=== PATIENT | female | born 1995 | race Two or more races ===

== ENCOUNTER 2018-08-30 16:33 | Inpatient (IN) | payer MEDICAID ==
[2018-08-30] MEDS ORDERED: Sodium Chloride 0.9% 10 ML Syringe FLUSH PRN (17:10)
[2018-08-30] MEDS ORDERED: Tranexamic Acid 1,000 MG in Sodium Chloride 0.9% 100 ML IV PRN (17:10)
[2018-08-30] MEDS ORDERED: Water For Irrigation,Sterile 1,000 ML Container IRR PRN (17:10)
[2018-08-30] MEDS ORDERED: Methylergonovine 0.2 MG/1 ML Amp IM PRN (17:10)
[2018-08-30] MEDS ORDERED: Butorphanol 1 MG/ML SDV IVPUSH PRN (17:10)
[2018-08-30] MEDS ORDERED: Sodium Chloride 0.9% 2.5 ML Syringe FLUSH PRN (17:10)
[2018-08-30] MEDS ORDERED: Misoprostol 200 MCG Tab PO PRN (17:10)
[2018-08-30] MEDS ORDERED: Lidocaine 1% 50 ML MDV INJECT PRN (17:10)
[2018-08-30] MEDS ORDERED: Nalbuphine 10 MG/1 ML Vial IVPUSH PRN (17:10)
[2018-08-30] MEDS ORDERED: Carboprost Tromethamine 250 MCG/1 ML Amp IM PRN (17:10)
[2018-08-30] MEDS ORDERED: Lactated Ringers 1,000 ML IV SCH (17:15)
[2018-08-30] MEDS ORDERED: Oxytocin/0.9 % Sodium Chloride 30 UNIT/500 ML BAG IV SCH (17:15)
[2018-08-30] MEDS ORDERED: fentaNYL 100 MCG/2 ML SDV ONE (18:22)
[2018-08-30] MEDS ORDERED: Ropivacaine HCl/PF 100 ML ONE (18:23)
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
[2018-08-30] MEDS ORDERED: Simethicone 80 MG Tab.Chew PO PRN (21:54)
[2018-08-30] MEDS ORDERED: Docusate Sodium 100 MG Cap PO PRN (21:54)
[2018-08-30] MEDS ORDERED: Lanolin 100% Cream 7 GM Tube TOP PRN (21:54)
[2018-08-30] MEDS ORDERED: Acetaminophen 500 MG Tab PO PRN ×2 (21:54)
[2018-08-30] MEDS ORDERED: Benzocaine/Menthol 20%-0.5% Spray 78 GM Cannister TOP PRN (21:54)
[2018-08-30] MEDS ORDERED: oxyCODONE 5 MG Tab PO PRN (21:54)
[2018-08-30] MEDS ORDERED: Bisacodyl 10 MG Supp RECTAL PRN (21:54)
[2018-08-30] MEDS ORDERED: Ibuprofen 400 MG Tab PO PRN (21:54)
[2018-08-30] MEDS ORDERED: Witch Hazel Medicated Pads 40/Jar TOP PRN (21:54)
--- NOTE | 2018-08-30 21:58 | PCM.DEL ---
L & D Note - General Info Date of Service: 08/30/18 - Delivery Note Labor: Spontaneous Delivery Outcome: Livebirth Delivery Method: Spontaneous Vaginal Delivery-Single Delivery Mode: Spontaneous Presentation: Vertex Nuchal Cord: None Prep: Other Anesthesia Type: Epidural Amniotic Fluid Description: Clear Episiotomy Type: None Laceration: 1st Degree Suture type: Vicryl Suture size: 3-0 Placenta: Intact, Spontaneous Cord: 3 Vessels Estimated Blood Loss: 200 Score 1 min: 7 Score 5 min: 8 - General Info Date of Service: 08/30/18 - Patient Data Weight - Most Recent: 140 lb Lab Results Last 24 Hours: Laboratory Results - last 24 hr 08/30/18 08/30/18 Range/Units 17:27 18:17 WBC 13.89 H (4.0-11.0) K/uL RBC 4.40 (4.30-5.90) M/uL Hgb 11.0 L (12.0-16.0) g/dL Hct 35.3 L (36.0-46.0) % MCV 80.2 (80.0-98.0) fL MCH 25.0 L (27.0-32.0) pg MCHC 31.2 (31.0-37.0) g/dL RDW Std Deviation 61.2 (28.0-62.0) fl RDW Coeff of Marcos 21 H (11.0-15.0) % Plt Count 445 H (150-400) K/uL MPV 9.80 (7.40-12.00) fL Nucleated RBC % 0.0 /100WBC Nucleated RBCs # 0 K/uL Blood Type O POSITIVE Antibody Screen NEGATIVE Med Orders - Current: Current Medications Butorphanol Tartrate (Stadol) 1 mg IVPUSH Q1H PRN PRN Reason: Pain Carboprost Tromethamine (Hemabate Ds) 250 mcg IM ASDIRECTED PRN PRN Reason: Post Hemorrhage Lactated Ringer's (Ringers, Lactated) 1,000 mls @ 150 mls/hr IV ASDIRECTED REYES Last Admin: 08/30/18 18:10 Dose: 150 mls/hr Oxytocin/Sodium Chloride (Oxytocin 30 Unit/500 Ml-Ns) 30 unit in 500 mls @ 999 mls/hr IV TITRATE REYES Tranexamic Acid 1,000 mg/ (Sodium Chloride) 110 mls @ 660 mls/hr IV ONETIME PRN PRN Reason: Bleeding Lidocaine HCl (Xylocaine 1%) 50 ml INJECT ONETIME PRN PRN Reason: Laceration repair Methylergonovine Maleate (Methergine) 0.2 mg IM ASDIRECTED PRN PRN Reason: Post Hemorrhage Misoprostol (Cytotec) 200 mcg PO ONETIME PRN PRN Reason: Post Hemorrhage Nalbuphine HCl (Nubain) 10 mg IVPUSH Q1H PRN PRN Reason: Pain (severe 7-10) Sodium Chloride (Saline Flush) 10 ml FLUSH ASDIRECTED PRN PRN Reason: Keep Vein Open Sodium Chloride (Saline Flush) 2.5 ml FLUSH ASDIRECTED PRN PRN Reason: Keep Vein Open Sterile Water (Sterile Water For Irrigation) 1,000 ml IRR ASDIRECTED PRN PRN Reason: delivery Discontinued Medications Fentanyl (Sublimaze) Confirm Administered Dose 100 mcg .ROUTE .STK-MED ONE Stop: 08/30/18 18:23 Ropivacaine (Naropin 0.2%) Confirm Administered Dose 100 mls @ as directed .ROUTE .STK-MED ONE Stop: 08/30/18 18:24 - Problem List & Annotations (1) Vaginal delivery SNOMED Code(s): 580952193 Code(s): O80 - ENCOUNTER FOR FULL-TERM UNCOMPLICATED DELIVERY Status: Acute Current Visit: Yes - Problem List Review Problem List Initiated/Reviewed/Updated: Yes - My Orders Last 24 Hours: My Active Orders 08/30/18 17:10 Patient Status [ADT] Routine Heart Tones [RC] CONTINUOUS Non Stress Test [RC] PER UNIT ROUTINE May Shower [RC] ASDIRECTED Notify Provider [RC] PRN Up ad Tasia [RC] ASDIRECTED Vaginal Exam [RC] PRN Vital Signs [RC] PER UNIT ROUTINE Butorphanol [Stadol] 1 mg IVPUSH Q1H PRN Carboprost Tromethamine [Hemabate DS] 250 mcg IM ASDIRECTED PRN Lidocaine 1% [Xylocaine 1%] 50 ml INJECT ONETIME PRN Methylergonovine [Methergine] 0.2 mg IM ASDIRECTED PRN Nalbuphine [Nubain] 10 mg IVPUSH Q1H PRN Sodium Chloride 0.9% [Saline Flush] 10 ml FLUSH ASDIRECTED PRN Sodium Chloride 0.9% [Saline Flush] 2.5 ml FLUSH ASDIRECTED PRN Tranexamic Acid [Cyklokapron] 1,000 mg Sodium Chloride 0.9% [Normal Saline] 100 ml IV ONETIME Water For Irrigation,Sterile [Sterile Water for Irrigation] 1,000 ml IRR ASDIRECTED PRN miSOPROStol [Cytotec] 200 mcg PO ONETIME PRN Scalp Electrode [WOMSER] Per Unit Routine Peripheral IV Insertion Adult [OM.PC] Routine Resuscitation Status Routine 08/30/18 17:15 Lactated Ringers [Ringers, Lactated] 1,000 ml IV ASDIRECTED Oxytocin/0.9 % Sodium Chloride [Oxytocin 30 Unit/500 ML-NS] 30 unit in 500 ml IV TITRATE
--- NOTE | 2018-08-31 01:17 | OR ---
SURGEON: Irene Levy MD DATE OF PROCEDURE: 08/30/2018 PREOPERATIVE DIAGNOSES: 1. Term at 40 weeks and 2 days gestation. 2. Spontaneous labor. POSTOPERATIVE DIAGNOSES: 1. Term at 40 weeks and 2 days gestation. 2. Spontaneous labor. 3. Delivered. PROCEDURE: Spontaneous vaginal delivery with repair of perineal laceration. ANESTHESIA: Epidural. ESTIMATED BLOOD LOSS: 200 mL. COMPLICATIONS: None. DISPOSITION: Mother and baby stable in Labor and Delivery room. FINDINGS: Female infant, weight 3580 g, scores 7 and 8 at 1 and 5 minutes respectively. Grossly normal placenta with 3-vessel cord. First-degree perineal laceration. BRIEF HISTORY: Mayela is a 23-year-old G4, P1-0-2-1, who was admitted mid afternoon at 40 weeks and 6 days gestation in spontaneous labor. She had presented for her routine care at the office and was 3-4 cm dilated at that time. By the time she presented to Labor and delivery 2 hours later, she was 6 cm dilated, 80% effaced, station -2 with a bulging membrane. Her care was complicated by close conception interval and iron deficiency anemia, which had required iron infusions. She is GBS negative. The patient was admitted, artificial rupture of membranes was performed with clear amniotic fluid returned. She then subsequently received epidural for pain management and progressed nicely to full dilatation and commenced active pushing thereafter. heart tracing was a category 1 tracing. She pushed quite well bringing the baby's head down to a +4 station and was set up for delivery in modified dorsal lithotomy position. DESCRIPTION OF PROCEDURE: She had a spontaneous vaginal delivery of a live female infant in direct occipital anterior position, no nuchal cord, clear amniotic fluid at delivery. Anterior and posterior shoulders and the rest of the baby were delivered without difficulty. Baby was vigorous and cried spontaneously at and was delivered onto the maternal abdomen with the nursery nurse in attendance, drying him. Delayed cord clamping was observed and the cord was subsequently cut by the father of the baby. With the delivery of the infant, oxytocin infusion was commenced for active management of third stage of labor. Cord blood and gas samples were obtained. Placenta was delivered by controlled cord traction, appeared to be complete and intact. Examination of the perineum, vaginal berrios and cervix revealed first-degree perineal laceration which was repaired with 3-0 Vicryl suture and was hemostatic post repair. Uterine massage was performed. The uterus was found to be well contracted below the umbilicus. The patient tolerated the procedure well. Sponge, instrument, and needle counts were correct at the end of the delivery. SALOME / MORGAN /[id number] MTDD
[2018-08-31] MEDS: Ibuprofen 800 MG Tab PO PRN ×2 (03:12→13:32)
[2018-08-31] MEDS: Ferrous Sulfate 325 MG Tab PO SCH ×3 (08:00→18:00)
--- NOTE | 2018-08-31 08:20 | PCM.PNPP ---
- General Info Date of Service: 08/31/18 Functional Status: Reports: Pain Controlled, Tolerating Diet, Ambulating, Urinating - Review of Systems General: Denies: Fever, Weakness, Fatigue, Chills HEENT: Denies: Headaches Pulmonary: Denies: Shortness of Breath, Pleuritic Chest Pain Cardiovascular: Denies: Chest Pain, Palpitations, Dyspnea on Exertion Gastrointestinal: Denies: Abdominal Pain Genitourinary: Denies: Dysuria, Incontinence, Retention, Flank Pain - General Info Date of Service: 08/31/18 - Patient Data Vital Signs - Most Recent: Last Vital Signs Temp 36.6 C 08/31/18 05:00 Pulse 107 H 08/31/18 05:00 Resp 16 08/31/18 05:00 BP 107/67 08/31/18 05:00 Pulse Ox 96 08/31/18 05:00 Weight - Most Recent: 140 lb Lab Results - Last 24 Hours: Laboratory Results - last 24 hr 08/30/18 08/30/18 08/30/18 Range/Units 17:27 18:17 21:27 WBC 13.89 H (4.0-11.0) K/uL RBC 4.40 (4.30-5.90) M/uL Hgb 11.0 L (12.0-16.0) g/dL Hct 35.3 L (36.0-46.0) % MCV 80.2 (80.0-98.0) fL MCH 25.0 L (27.0-32.0) pg MCHC 31.2 (31.0-37.0) g/dL RDW Std Deviation 61.2 (28.0-62.0) fl RDW Coeff of Marcos 21 H (11.0-15.0) % Plt Count 445 H (150-400) K/uL MPV 9.80 (7.40-12.00) fL Nucleated RBC % 0.0 /100WBC Nucleated RBCs # 0 K/uL Cord ABG pH (7.18-7.38) Cord ABG Base Excess (-10--2) Cord VBG pH 7.225 L (7.25-7.45) Cord VBG Base Excess -6 (-10--2) Blood Type O POSITIVE Antibody Screen NEGATIVE 08/30/18 08/31/18 Range/Units 21:27 06:14 WBC (4.0-11.0) K/uL RBC (4.30-5.90) M/uL Hgb 9.2 L (12.0-16.0) g/dL Hct 29.7 L (36.0-46.0) % MCV (80.0-98.0) fL MCH (27.0-32.0) pg MCHC (31.0-37.0) g/dL RDW Std Deviation (28.0-62.0) fl RDW Coeff of Marcos (11.0-15.0) % Plt Count (150-400) K/uL MPV (7.40-12.00) fL Nucleated RBC % /100WBC Nucleated RBCs # K/uL Cord ABG pH 7.289 (7.18-7.38) Cord ABG Base Excess -8 (-10--2) Cord VBG pH (7.25-7.45) Cord VBG Base Excess (-10--2) Blood Type Antibody Screen Med Orders - Current: Current Medications Acetaminophen (Tylenol Extra Strength) 500 mg PO Q4H PRN PRN Reason: Pain Acetaminophen (Tylenol Extra Strength) 1,000 mg PO Q4H PRN PRN Reason: Pain Benzocaine/Menthol (Dermoplast Pain Relief 20%-0.5% [place]) 78 gm TOP ASDIRECTED PRN PRN Reason: Perineal Comfort Measure Last Admin: 08/31/18 00:35 Dose: 1 applic Bisacodyl (Dulcolax) 10 mg RECTAL ONETIME PRN PRN Reason: Constipation Butorphanol Tartrate (Stadol) 1 mg IVPUSH Q1H PRN PRN Reason: Pain Carboprost Tromethamine (Hemabate Ds) 250 mcg IM ASDIRECTED PRN PRN Reason: Post Hemorrhage Docusate Sodium (Colace) 100 mg PO BID PRN PRN Reason: Constipation Emollient Ointment (Lansinoh Hpa) 0 gm TOP ASDIRECTED PRN PRN Reason: Sore Nipples Ferrous Sulfate (Ferrous Sulfate) 325 mg PO TIDMEALS REYES Lactated Ringer's (Ringers, Lactated) 1,000 mls @ 150 mls/hr IV ASDIRECTED REYES Last Admin: 08/30/18 18:10 Dose: 150 mls/hr Oxytocin/Sodium Chloride (Oxytocin 30 Unit/500 Ml-Ns) 30 unit in 500 mls @ 999 mls/hr IV TITRATE REYES Last Admin: 08/30/18 21:27 Dose: 999 mls/hr Tranexamic Acid 1,000 mg/ (Sodium Chloride) 110 mls @ 660 mls/hr IV ONETIME PRN PRN Reason: Bleeding Ibuprofen (Motrin) 400 mg PO Q4H PRN PRN Reason: Pain Ibuprofen (Motrin) 800 mg PO Q6H PRN PRN Reason: Pain Last Admin: 08/31/18 03:12 Dose: 800 mg Lidocaine HCl (Xylocaine 1%) 50 ml INJECT ONETIME PRN PRN Reason: Laceration repair Methylergonovine Maleate (Methergine) 0.2 mg IM ASDIRECTED PRN PRN Reason: Post Hemorrhage Misoprostol (Cytotec) 200 mcg PO ONETIME PRN PRN Reason: Post Hemorrhage Nalbuphine HCl (Nubain) 10 mg IVPUSH Q1H PRN PRN Reason: Pain (severe 7-10) Oxycodone HCl (Oxycodone) 5 mg PO Q2H PRN PRN Reason: Pain Simethicone (Simethicone) 80 mg PO Q4H PRN PRN Reason: Gas Sodium Chloride (Saline Flush) 10 ml FLUSH ASDIRECTED PRN PRN Reason: Keep Vein Open Sodium Chloride (Saline Flush) 2.5 ml FLUSH ASDIRECTED PRN PRN Reason: Keep Vein Open Sterile Water (Sterile Water For Irrigation) 1,000 ml IRR ASDIRECTED PRN PRN Reason: delivery Witch Sari (Tucks) 1 pad TOP ASDIRECTED PRN PRN Reason: comfort care Last Admin: 08/31/18 00:34 Dose: 1 applic Discontinued Medications Fentanyl (Sublimaze) Confirm Administered Dose 100 mcg .ROUTE .STK-MED ONE Stop: 08/30/18 18:23 Last Admin: 08/31/18 07:12 Dose: Not Given Ropivacaine (Naropin 0.2%) Confirm Administered Dose 100 mls @ as directed .ROUTE .STK-MED ONE Stop: 08/30/18 18:24 Last Admin: 08/31/18 07:12 Dose: Not Given - Infant Interaction Disposition, : Wrights in Room with Family Infant Feeding: Breastfed Infant; Nursed Well, Continues to Breastfeed Support Person: Significant Other - Recovery Exam Fundal Tone: Firm Fundal Level: At Umbilicus Fundal Placement: Midline Lochia Amount: Scant Lochia Color: Rubra/Red Perineum Description: Intact, Minimal Bruising/Swelling, Edematous Episiotomy/Laceration: Approximated Bladder Status: Voiding Urinary Elimination: Voided - Exam General: Alert, Oriented HEENT: Pupils Equal Neck: Supple Lungs: Clear to Auscultation, Normal Respiratory Effort Cardiovascular: Regular Rate, Regular Rhythm GI/Abdominal Exam: Normal Bowel Sounds Extremities: Non-Tender, Pedal Edema Skin: Warm Psy/Mental Status: Alert, Normal Affect, Normal Mood - Problem List & Annotations (1) Vaginal delivery SNOMED Code(s): 163886042 Code(s): O80 - ENCOUNTER FOR FULL-TERM UNCOMPLICATED DELIVERY Status: Acute Current Visit: Yes (2) Anemia affecting , antepartum SNOMED Code(s): 303622459 Code(s): O99.019 - ANEMIA COMPLICATING , UNSPECIFIED TRIMESTER Status: Acute Current Visit: Yes - Problem List Review Problem List Initiated/Reviewed/Updated: Yes - My Orders Last 24 Hours: My Active Orders 08/30/18 17:10 May Shower [RC] ASDIRECTED Notify Provider [RC] PRN Up ad Tasia [RC] ASDIRECTED Vital Signs [RC] PER UNIT ROUTINE Butorphanol [Stadol] 1 mg IVPUSH Q1H PRN Carboprost Tromethamine [Hemabate DS] 250 mcg IM ASDIRECTED PRN Lidocaine 1% [Xylocaine 1%] 50 ml INJECT ONETIME PRN Methylergonovine [Methergine] 0.2 mg IM ASDIRECTED PRN Nalbuphine [Nubain] 10 mg IVPUSH Q1H PRN Sodium Chloride 0.9% [Saline Flush] 10 ml FLUSH ASDIRECTED PRN Sodium Chloride 0.9% [Saline Flush] 2.5 ml FLUSH ASDIRECTED PRN Tranexamic Acid [Cyklokapron] 1,000 mg Sodium Chloride 0.9% [Normal Saline] 100 ml IV ONETIME Water For Irrigation,Sterile [Sterile Water for Irrigation] 1,000 ml IRR ASDIRECTED PRN miSOPROStol [Cytotec] 200 mcg PO ONETIME PRN Scalp Electrode [WOMSER] Per Unit Routine Peripheral IV Insertion Adult [OM.PC] Routine 08/30/18 17:15 Lactated Ringers [Ringers, Lactated] 1,000 ml IV ASDIRECTED Oxytocin/0.9 % Sodium Chloride [Oxytocin 30 Unit/500 ML-NS] 30 unit in 500 ml IV TITRATE 08/30/18 21:54 Patient Status [ADT] Routine May Shower [RC] ASDIRECTED Up ad Tasia [RC] ASDIRECTED Vital Signs [RC] PER UNIT ROUTINE Acetaminophen [Tylenol Extra Strength] 1,000 mg PO Q4H PRN Acetaminophen [Tylenol Extra Strength] 500 mg PO Q4H PRN Benzocaine/Menthol [Dermoplast Pain Relief 20%-0.5% [place]] 78 gm TOP ASDIRECTED PRN Bisacodyl [Dulcolax] 10 mg RECTAL ONETIME PRN Docusate Sodium [Colace] 100 mg PO BID PRN Ibuprofen [Motrin] 400 mg PO Q4H PRN Ibuprofen [Motrin] 800 mg PO Q6H PRN Lanolin [Lansinoh HPA] See Dose Instructions TOP ASDIRECTED PRN Simethicone 80 mg PO Q4H PRN Witch Sari [Tucks] 1 pad TOP ASDIRECTED PRN oxyCODONE 5 mg PO Q2H PRN Assess Lochia [WOMSER] Per Unit Routine Assess Uterine Involution [WOMSER] Per Unit Routine Peripheral IV Discontinue [OM.PC] Routine Resuscitation Status Routine 08/31/18 08:00 Ferrous Sulfate 325 mg PO TIDMEALS 08/31/18 Breakfast Regular Diet [DIET] - Assessment Assessment:: PPD#1 s/p , stable and afebrile Aim for discharge today - Plan Plan:: Discharge instructions reviewed. Nothing in the vagina for 6 weeks Bleeding and infection precautions reviewed Continue PNV and Iron supplements depression S/S reviewed, encouraged to call with concerns Follow up in 6 weeks at [facility]
--- NOTE | 2018-08-31 10:23 | PCM.POSTAN ---
POST ANESTHESIA ASSESSMENT - MENTAL STATUS Mental Status: Alert - RESPIRATORY Respiratory Status: Respiratory Rate WNL, Airway Patent, O2 Saturation Stable - CARDIOVASCULAR CV Status: Pulse Rate WNL, Blood Pressure Stable - GASTROINTESTINAL GI Status: No Symptoms - POST OP HYDRATION Hydration Status: Adequate & Stable (Patient is comfortable at this time, no signs or symptoms of anesthesia related problems)
== END 2018-09-01 00:30 | disposition home or self-care (01) | DRG 807 ==
LOC: MW.OBCHECK 16:33 → MW.OB 17:10 → OBSVTOIN 21:27 → MW.OBCHECK 21:42
PROVIDERS: ADMIT Obstetrics & Gynecology; ATTEND Obstetrics & Gynecology
PROC: 10E0XZZ Delivery of Products of Conception, External Approach (ICD-10-PCS; principal; 2018-08-30)
PROC: 0HQ9XZZ Repair Perineum Skin, External Approach (ICD-10-PCS; 2018-08-30)
PROC: 10907ZC Drainage of Amniotic Fluid, Therapeutic from Products of Conception, Via Natural or Artificial Opening (ICD-10-PCS; 2018-08-30)
PROC: 6A550ZT Pheresis of Cord Blood Stem Cells, Single (ICD-10-PCS; 2018-08-30)
PROC: 00HU33Z Insertion of Infusion Device into Spinal Canal, Percutaneous Approach (ICD-10-PCS; 2018-08-30)
DX: O99.02 Anemia complicating childbirth (principal); Z37.0 Single live birth; D50.9 Iron deficiency anemia, unspecified; Z3A.40 40 weeks gestation of pregnancy
CPT/HCPCS: 36415; 59025; 59409; 82803; 85014; 85018; 85027; 86850; 86900; 86901; A9270-GY; J2590; J7120

== ENCOUNTER 2019-07-15 08:03 | Emergency (ER) | payer OTHER ==
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
[2019-07-15 09:53] LABS: BLOOD UREA NITROGEN,BUN 11 mg/dL (7.0-18.0); CARBON DIOXIDE,CO2 23.7 mmol/L (21.0-32.0); CHLORIDE,CL 103 mmol/L (98-107); GLUCOSE RANDOM 91 mg/dL (74-106); POTASSIUM,K 3.8 mmol/L (3.5-5.1); SODIUM,NA 136 mmol/L (136-145)
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
== END 2019-07-15 10:34 | disposition home or self-care (01) ==
LOC: MERGE 08:03 → MW.ED 08:03
DX: O99.89 Other specified diseases and conditions complicating pregnancy, childbirth and the puerperium (principal); M25.562 Pain in left knee; O23.41 Unspecified infection of urinary tract in pregnancy, first trimester; Z3A.01 Less than 8 weeks gestation of pregnancy; V43.62XA Car passenger injured in collision with other type car in traffic accident, initial encounter; Y92.410 Unspecified street and highway as the place of occurrence of the external cause
CPT/HCPCS: 36415; 71045; 71045-26; 73562-26-LT; 73562-LT; 76700; 76700-26; 76857; 76857-26; 80053; 81001; 82550; 84702; 85025; 86900; 86901; 87086; 87088; 87186; 99284-25

== ENCOUNTER 2020-03-02 09:13 | Inpatient (IN) | payer MEDICAID ==
[2020-03-02] MEDS ORDERED: Sodium Chloride 0.9% 10 ML Syringe FLUSH PRN (09:34)
[2020-03-02] MEDS ORDERED: Carboprost Tromethamine 250 MCG/1 ML Amp IM PRN (09:34)
[2020-03-02] MEDS ORDERED: Tranexamic Acid 1,000 MG in Sodium Chloride 0.9% 100 ML IV PRN (09:34)
[2020-03-02] MEDS ORDERED: Misoprostol 200 MCG Tab PO PRN (09:34)
[2020-03-02] MEDS ORDERED: Butorphanol 1 MG/ML SDV IVPUSH PRN (09:34)
[2020-03-02] MEDS ORDERED: Methylergonovine 0.2 MG/1 ML Amp IM PRN (09:34)
[2020-03-02] MEDS ORDERED: Sodium Chloride 0.9% 10 ML SDV IV PRN (09:34)
[2020-03-02] MEDS ORDERED: Water For Irrigation,Sterile 1,000 ML Container IRR PRN (09:34)
[2020-03-02] MEDS ORDERED: Sodium Chloride 0.9% 2.5 ML Syringe FLUSH PRN (09:34)
[2020-03-02] MEDS ORDERED: Nalbuphine 10 MG/1 ML Vial IVPUSH PRN (09:34)
[2020-03-02] MEDS ORDERED: Lidocaine 1% 50 ML MDV INJECT PRN (09:34)
[2020-03-02] MEDS ORDERED: Terbutaline 1 MG/ML SDV SUBCUT PRN (09:36)
[2020-03-02] MEDS ORDERED: Misoprostol 25 MCG (1/4 of 100 MCG) Tab VAG PRN ×2 (09:36)
[2020-03-02] MEDS ORDERED: Oxytocin/0.9 % Sodium Chloride 30 UNIT/500 ML BAG IV SCH ×2 (09:45)
[2020-03-02] MEDS ORDERED: Lactated Ringers 1,000 ML IV SCH (09:45)
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
[2020-03-02] MEDS ORDERED: Docusate Sodium 100 MG Cap PO PRN (20:33)
[2020-03-02] MEDS ORDERED: Ibuprofen 800 MG Tab PO PRN (20:33)
[2020-03-02] MEDS ORDERED: oxyCODONE 5 MG Tab PO PRN (20:33)
[2020-03-02] MEDS ORDERED: Acetaminophen 500 MG Tab PO PRN ×2 (20:33)
[2020-03-02] MEDS ORDERED: Bisacodyl 10 MG Supp RECTAL PRN (20:33)
[2020-03-02] MEDS ORDERED: Lanolin 100% Cream 7 GM Tube TOP PRN (20:33)
[2020-03-02] MEDS ORDERED: Witch Hazel Medicated Pads 40/Jar TOP PRN (20:33)
[2020-03-02] MEDS ORDERED: Benzocaine/Menthol 20%-0.5% Spray 78 GM Cannister TOP PRN (20:33)
[2020-03-02] MEDS ORDERED: Ibuprofen 400 MG Tab PO PRN (20:33)
--- NOTE | 2020-03-03 07:45 | OR ---
SURGEON: Pk Copeland MD DATE OF PROCEDURE: 03/02/2020 Ms. Mayela Ramirez is 24 years old. She is para 3-0-0-3. She is followed in our clinic jointly by our numerical control nesting operator and myself. She had no complication. Her GBS status is negative. She is 39+ weeks. She is admitted for elective induction. At the time of admission, she was having contraction, and she was dilated to 3 to 4 cm, 70, vertex, with bulging bag of water. The patient was started on Pitocin and then later on I did an artificial rupture of the membrane with clear fluid. The patient responded to the artificial rupture of the membrane and Pitocin very favorably. She progressed quickly to 5 to 7 and 8 and then complete, and she accomplished normal spontaneous vaginal delivery of a male fetus. score reported to be 8 and 9. The weight is not available. The placenta delivered spontaneous, complete, and intact. There was no need for episiotomy. There was no perineal, vaginal, or labial laceration. Estimated blood loss was 250 to 300 mL. heart rate was category 1 through the entire process of labor and delivery. There was no complication in the labor process and in the delivery. DHARMESH / MORGAN /[id number]
--- NOTE | 2020-03-03 09:38 | PCM.DCSUM1 ---
Discharge Summary - Hospital Course Free Text/Narrative:: Discharge home with . Follow up in 6 weeks for visit. Diagnosis: Stroke: No - Discharge Data Discharge Date: 03/03/20 Discharge Disposition: Home, Self-Care 01 Condition: Good - Referral to Home Health Primary Care Physician: PCP None - Patient Instructions Diet: Usual Diet as Tolerated Activity: As Tolerated, No Strenuous Activities, Rest and Relax Today Driving: May Drive Today Showering/Bathing: May Shower Notify Provider of: Fever, Increased Pain, Swelling and Redness, Nausea and/or Vomiting Other/Special Instructions: Discharge home with infant. Follow up in 6 weeks for visit. - Discharge Plan *PRESCRIPTION DRUG MONITORING PROGRAM REVIEWED*: Not Applicable *COPY OF PRESCRIPTION DRUG MONITORING REPORT IN PATIENT MARIFER: Not Applicable Home Medications: Home Meds Ferrous Sulfate 08/22/18 [History] No.116/Iron/Folic/Dha [Expecta Combo Pack] 08/22/18 [History] . [No Known Home Meds] 07/15/19 [History] Oxygen Therapy Mode: Room Air Referrals: [facility] [Outside] Elise Olsen CNM [Mid-] - 04/14/20 2:15 pm - Discharge Summary/Plan Comment DC Time >30 min.: Yes - General Info Date of Service: 03/03/20 Admission Dx/Problem (Free Text: Patient Status Order with Admit Dx/Problem 03/02/20 09:34 Patient Status [ADT] Routine Admission Diagnosis/Problem Admission Diagnosis/Problem Functional Status: Reports: Pain Controlled, Tolerating Diet, Ambulating, Urinating - Review of Systems General: Reports: No Symptoms HEENT: Reports: No Symptoms Pulmonary: Reports: No Symptoms Cardiovascular: Reports: No Symptoms Gastrointestinal: Reports: No Symptoms Genitourinary: Reports: No Symptoms Musculoskeletal: Reports: No Symptoms Skin: Reports: No Symptoms Neurological: Reports: No Symptoms Psychiatric: Reports: No Symptoms - Patient Data Vitals - Most Recent: Last Vital Signs Temp 36.5 C 03/03/20 07:45 Pulse 88 03/03/20 07:45 Resp 18 03/03/20 07:45 BP 127/70 03/03/20 07:45 Pulse Ox 96 03/03/20 07:45 Weight - Most Recent: 73.482 kg Lab Results - Last 24 hrs: Laboratory Results - last 24 hr 03/02/20 03/02/20 03/02/20 Range/Units 09:28 10:25 10:30 WBC 6.62 (4.0-11.0) K/uL RBC 3.89 L (4.30-5.90) M/uL Hgb 9.0 L (12.0-16.0) g/dL Hct 30.2 L (36.0-46.0) % MCV 77.6 L (80.0-98.0) fL MCH 23.1 L (27.0-32.0) pg MCHC 29.8 L (31.0-37.0) g/dL RDW Std Deviation 48.7 (28.0-62.0) fl RDW Coeff of Marcos 17 H (11.0-15.0) % Plt Count 415 H (150-400) K/uL MPV 9.80 (7.40-12.00) fL Nucleated RBC % 0.0 /100WBC Nucleated RBCs # 0 K/uL Membrane Rupture COVID-19 (JEREL) NEGATIVE (NEGATIVE) Blood Type O POSITIVE Antibody Screen NEGATIVE 03/02/20 03/03/20 Range/Units 10:30 05:15 WBC (4.0-11.0) K/uL RBC (4.30-5.90) M/uL Hgb 8.7 L (12.0-16.0) g/dL Hct 28.9 L (36.0-46.0) % MCV (80.0-98.0) fL MCH (27.0-32.0) pg MCHC (31.0-37.0) g/dL RDW Std Deviation (28.0-62.0) fl RDW Coeff of Marcos (11.0-15.0) % Plt Count (150-400) K/uL MPV (7.40-12.00) fL Nucleated RBC % /100WBC Nucleated RBCs # K/uL Membrane Rupture NEGATIVE COVID-19 (JEREL) (NEGATIVE) Blood Type Antibody Screen Med Orders - Current: Current Medications Acetaminophen (Tylenol Extra Strength) 500 mg PO Q4H PRN PRN Reason: Pain Acetaminophen (Tylenol Extra Strength) 1,000 mg PO Q4H PRN PRN Reason: Pain Benzocaine/Menthol (Dermoplast Pain Relief 20%-0.5% Byron) 78 gm TOP ASDIRECTED PRN PRN Reason: Perineal Comfort Measure Last Admin: 03/02/20 21:32 Dose: 1 canister Documented by: Bisacodyl (Dulcolax) 10 mg RECTAL ONETIME PRN PRN Reason: Constipation Butorphanol Tartrate (Stadol) 1 mg IVPUSH Q1H PRN PRN Reason: Pain Carboprost Tromethamine (Hemabate Ds) 250 mcg IM ASDIRECTED PRN PRN Reason: Post Hemorrhage Docusate Sodium (Colace) 100 mg PO BID PRN PRN Reason: Constipation Last Admin: 03/02/20 22:22 Dose: 100 mg Documented by: Emollient Ointment (Lansinoh Hpa) 0 gm TOP ASDIRECTED PRN PRN Reason: Sore Nipples Last Admin: 03/02/20 21:33 Dose: 1 tube Documented by: Oxytocin/Sodium Chloride (Oxytocin 30 Unit/500 Ml-Ns) 30 unit in 500 mls @ 500 mls/hr IV TITRATE REYES Last Infusion: 03/02/20 20:42 Dose: 500 mls/hr Documented by: Tranexamic Acid 1,000 mg/ (Sodium Chloride) 110 mls @ 660 mls/hr IV ONETIME PRN PRN Reason: Bleeding Lactated Ringer's (Ringers, Lactated) 1,000 mls @ 150 mls/hr IV ASDIRECTED REYES Last Admin: 03/02/20 14:15 Dose: 150 mls/hr Documented by: Oxytocin/Sodium Chloride (Oxytocin 30 Unit/500 Ml-Ns) 30 unit in 500 mls @ 2 mls/hr IV TITRATE REYES; Protocol Last Titration: 03/02/20 20:05 Dose: 0 munits/min, 0 mls/hr Documented by: Ibuprofen (Motrin) 400 mg PO Q4H PRN PRN Reason: Pain Last Admin: 03/03/20 05:24 Dose: 400 mg Documented by: Ibuprofen (Motrin) 800 mg PO Q6H PRN PRN Reason: Pain Last Admin: 03/02/20 22:21 Dose: 800 mg Documented by: Lidocaine HCl (Xylocaine 1%) 50 ml INJECT ONETIME PRN PRN Reason: Laceration repair Methylergonovine Maleate (Methergine) 0.2 mg IM ASDIRECTED PRN PRN Reason: Post Hemorrhage Misoprostol (Cytotec) 200 mcg PO ONETIME PRN PRN Reason: Post Hemorrhage Misoprostol (Cytotec) 25 mcg VAG ONETIME PRN PRN Reason: Cervical Ripening Misoprostol (Cytotec) 25 mcg VAG Q4H PRN PRN Reason: Cervical Ripening Nalbuphine HCl (Nubain) 10 mg IVPUSH Q1H PRN PRN Reason: Pain (severe 7-10) Oxycodone HCl (Oxycodone) 5 mg PO Q2H PRN PRN Reason: Pain Sodium Chloride (Saline Flush) 10 ml FLUSH ASDIRECTED PRN PRN Reason: Keep Vein Open Sodium Chloride (Saline Flush) 2.5 ml FLUSH ASDIRECTED PRN PRN Reason: Keep Vein Open Sodium Chloride (Normal Saline) 10 ml IV ASDIRECTED PRN PRN Reason: IV Use Sterile Water (Sterile Water For Irrigation) 1,000 ml IRR ASDIRECTED PRN PRN Reason: delivery Terbutaline Sulfate (Brethine) 0.25 mg SUBCUT ASDIRECTED PRN PRN Reason: Tacysystole Witch Sari (Tucks) 1 pad TOP ASDIRECTED PRN PRN Reason: comfort care Last Admin: 03/02/20 21:32 Dose: 1 tub Documented by: - Exam General: Reports: Alert, Oriented, Cooperative, No Acute Distress Lungs: Reports: Normal Respiratory Effort GI/Abdominal Exam: Soft, Non-Tender, Pelvis Stable (Female) Exam: Deferred, Vaginal Bleeding Rectal (Female) Exam: Deferred Back Exam: Reports: Full Range of Motion Extremities: Normal Range of Motion, No Pedal Edema Skin: Reports: Warm, Dry, Intact Wound/Incisions: Reports: Healing Well Neurological: Reports: No New Focal Deficit, Normal Speech, Normal Tone, Sensation Intact, Cranial Nerves Intact Psy/Mental Status: Reports: Alert, Normal Affect, Normal Mood
== END 2020-03-03 23:30 | disposition home or self-care (01) | DRG 807 ==
LOC: MW.OB 09:13 → OBSVTOIN 20:34 → MW.OB 23:30
PROVIDERS: ADMIT Obstetrics & Gynecology; ATTEND Obstetrics & Gynecology
PROC: 10E0XZZ Delivery of Products of Conception, External Approach (ICD-10-PCS; principal; 2020-03-02)
PROC: 10907ZC Drainage of Amniotic Fluid, Therapeutic from Products of Conception, Via Natural or Artificial Opening (ICD-10-PCS; 2020-03-02)
DX: O80 Encounter for full-term uncomplicated delivery (principal); Z37.0 Single live birth; Z3A.39 39 weeks gestation of pregnancy; Z11.59 Encounter for screening for other viral diseases; Z79.899 Other long term (current) drug therapy; Z91.040 Latex allergy status
CPT/HCPCS: 36415; 59025; 59409; 84112; 85014; 85018; 85027; 86592; 86593; 86780; 86850; 86900; 86901; A9270-GY; J2590; J7120; U0002